=== PATIENT | male | born 1950 | race Caucasian/White ===

== ENCOUNTER 2019-02-12 07:56 | Day surgery (SDC) | payer MEDICARE ==
[~2019-02-12 07:56] MED LIST: AMBIEN5 MG PO; AMIODARONE200 MG PO; AMLODIPINE5 MG PO; AMOXICILLIN875 MG OR; ASPIRIN EC81 MG PO; ATORVASTATIN CA10 MG PO; AUGMENTIN875TAB PO; AVELOX400 MG OR; AVELOX400 MG PO; BABY ASPIRIN81 MG PO; CALCIUM + D PO; CALCIUM 600+D3 PO; CIPROFLOXACN500 MG PO; CLINDAMYCIN HC150 MG PO; COZAAR100 MG PO; DIOVAN320 MG OR; FLEXERIL; FLEXERIL PO; FLORASTOR250 M1 PO; FUROSEMIDE40 MG PO; GABAPENTIN100 MG PO; HYDROCO/APAP1 T10 PO; IMDUR120 MG PO; LASIX 40 MG TAB40 MG PO; LASIX 40 MG40 MG/TAB PO; LIPITOR80 M1 PO; MAGNESIUM400 MG PO; MEDDOSEPAK PO; MELATONIN10 M1 PO; METOPROL TAR100 MG PO; MULTI FOR HIM; MULTIVITAMIN ME1 TA1 PO; MULTIVITAMIN PO; NAPROXEN SOD500 MG PO; NAPROXEN500 MG PO; NEURONTIN100 MG PO; NIASPAN500 MG PO; NITROGLYCER0.2 MG/H1 TD; NITROSTAT0.4 MG SL; NORCO1 TAB PO; OMEPRAZOLE20 MG PO; OXYCODONE HCL15 MG PO; PEPCID20 MG PO; PERCOCET1 TA4 PO; PRILOSEC OTC20 MG OR; PRILOSEC20 MG PO; PROAIR HFA IN; RESTORIL15 M1 PO; RESTORIL15 MG PO; RESTORIL30 MG PO; SPIRONOLACT25 MG PO; SYMBICORT 80-4.5MCG INF; SYMBICORT1 AE1 IN; TEMAZEPAM30 MG PO; TOPROL XL100 MG OR; TOPROL XL100 MG PO; TRAMADOL HCL50 MG PO; TRAZODONE50 MG PO; ULTRAM ER100 MG OR; VANCOMYCIN HCL1.5GM IV; VENTOLIN HFA IN; VIBRAMYCIN100 M2 PO; WELLBUTRIN XL OR; XARELTO10 MG PO; XARELTO20 MG PO; ZITHROMAX250 MG PO; ZOCOR20 M1 PO; ZOCOR20 MG OR
[2019-02-12 10:05] VITALS: BP 146/76
== END 2019-02-12 10:20 | disposition home or self-care (01) ==
LOC: ENDO 07:56 → ORM 10:30 → ENDO 10:30 → ORM 02-15 09:45
PROVIDERS: ATTEND Surgery
PROC: 0DBF8ZX Excision of Right Large Intestine, Via Natural or Artificial Opening Endoscopic, Diagnostic (ICD-10-PCS; principal; 2019-02-12)
PROC: 0DBL8ZX Excision of Transverse Colon, Via Natural or Artificial Opening Endoscopic, Diagnostic (ICD-10-PCS; 2019-02-12)
PROC: 0DBN8ZX Excision of Sigmoid Colon, Via Natural or Artificial Opening Endoscopic, Diagnostic (ICD-10-PCS; 2019-02-12)
DX: D12.3 Benign neoplasm of transverse colon (principal); D12.2 Benign neoplasm of ascending colon; F17.210 Nicotine dependence, cigarettes, uncomplicated; Z90.49 Acquired absence of other specified parts of digestive tract

== ENCOUNTER 2020-12-26 17:58 | Emergency (ER) | payer MEDICARE ==
[~2020-12-26] VITALS: Ht 170.2 cm; Wt 79.5 kg
[2020-12-26] MEDS ORDERED: CLOPIDOGREL75 MG PO (18:29)
[2020-12-26] MEDS ORDERED: TORSEMIDE20 M1 PO (18:30)
[2020-12-26] MEDS ORDERED: FOLIC ACID1 MG PO (18:30)
[2020-12-26 18:32] LABS: IMMATURE GRANULOCYTES 0.2 % (0.0-5.0); MEAN CELL VOLUME 106.6 fL CALC (80.0-100.0); MEAN CORPUSCULAR HGB 32.6 pG CALC (26.0-32.0); MEAN CORPUSCULAR HGB CONC 30.6 g/dL CAL (32.0-36.0); NEUT# 10.66 thou/uL (1.82-7.42); RED BLOOD COUNT 2.73 mill/uL (4.70-6.10); RED CELL DISTRI WIDTH 15.9 % (11.5-15.5)
[2020-12-26 18:35] LABS: HEMATOCRIT 29.1 % (39.0-50.0); HEMOGLOBIN 8.9 g/dl (14.0-18.0)
[2020-12-26 18:45] LABS: ALBUMIN 3.9 g/dL (3.2-5.0); BILIRUBIN, TOTAL 0.6 mg/dL (0.0-1.4); CREATININE 2.9 mg/dL (0.7-1.3); POTASSIUM 4.8 mmol/l (3.5-5.1); TOTAL PROTEIN 7.2 g/dL (6.3-8.2)
[2020-12-26 18:46] LABS: ACT PARTIAL THROMBO TIME 26.6 SECONDS (20.0-32.5); PROTHROMBIN TIME 12.8 SECONDS (9.0-12.5)
[2020-12-26 18:48] LABS: INTERNATIONAL NORMALIZED RATIO 1.3 RATIO (0.7-1.3)
[2020-12-26 19:02] VITALS: BP 110/60
== END 2020-12-26 19:03 | disposition short-term general hospital (02) ==
LOC: ED 17:58
DX: I25.110 Atherosclerotic heart disease of native coronary artery with unstable angina pectoris (principal); I21.9 Acute myocardial infarction, unspecified; F17.200 Nicotine dependence, unspecified, uncomplicated; Z95.810 Presence of automatic (implantable) cardiac defibrillator; Z95.1 Presence of aortocoronary bypass graft; Z95.5 Presence of coronary angioplasty implant and graft